=== PATIENT | male | born 1965 | race Hispanic/Latino ===

== ENCOUNTER 2017-08-03 21:03 | Observation (INO) | payer OTHER ==
--- OUTSIDE RECORDS SUMMARY | 2017-08-03 21:04 | XMS REPORT ---
:1965 Author Organization eClinicalWorks Care Team Providers Name Role Phone Leora Vizcarra Provider Role Unavailable Allergies, Adverse Reactions, Alerts Substance Reaction Event Type N.K.D.A. Info Not Available Non Drug Allergy Problems Problem Type Condition Code Onset Dates Condition Status Problem Hypertension I10 Active Assessment Hypertension I10 Active Problem Pure hypercholesterolemia E78.00 Active Assessment Pure hypercholesterolemia E78.00 Active Assessment Encounter for screening for Z12.5 Active malignant neoplasm of prostate Medications Medication Code Code Instructions Start End Status Dosage System Date Date Cefdinir [facility] 58584347400 300 MG Oral Active TK 2 CS PO QD Virtussin A/C [facility] 53631930920 100-10 MG/5ML Active (Schedule V Oral Drug) TK 1 TO 2 TEASPOONS PO QHS PRN Aspirin Adult [facility] 16082296153 81 MG Orally Active 1 tablet Low Dose Once a day Lisinopril [facility] 98887508857 10 MG Oral Once Active 1 tablet a day Azithromycin ND 56976231121 250 MG Oral Active not defined Oseltamivir [facility] 78555167197 75 MG Oral Active TK ONE C PO Phosphate BID TAT Simvastatin [facility] 53752582892 20 MG Oral Once Active 1 tablet in a day the evening Fish Oil ND 31930354986 500 MG Orally Active 1 capsule Twice a day Results No Known Results Summary Purpose eClinicalWorks Submission
[2017-08-03 22:05] LABS: Absolute Lymphocytes (CBC) 1.5 K/uL (0.7-4.9); Absolute Monocytes 0.9 K/uL (0.1-1.3); Absolute Neutrophil 11.3 K/uL (1.8-8.0); Basophils % 0.2 % (0-1.3); Eosinophils % 0.3 % (0-4.4); Hematocrit 43.5 % (39.6-49.0); Lymphocytes % 10.8 % (15.3-44.8); MCH 28.6 pg (27.0-35.0); MCV 86.1 fL (80-100); MPV 7.8 fL (7.6-11.3); Monocytes % 6.4 % (3.3-12.3); RBC Red Blood Cell Count 5.06 M/uL (4.33-5.43)
[2017-08-03 22:16] LABS: Protime INR 1.16
[2017-08-03 22:17] LABS: Potassium 3.3 mEq/L (3.6-5.0)
[2017-08-03 22:25] LABS: Albumin 4.1 g/dL (3.2-5.5); Bilirubin Direct 0.1 mg/dL (0-0.2); Bilirubin Total 0.8 mg/dL (0.3-1.2); C-Reactive Protein 103.2 mg/L (<10.0); Protein, Total 7.3 g/dL (6.0-8.3)
[2017-08-03 22:27] LABS: CKMB Creatine Kinase MB 0.7 ng/ml (0.3-4.0)
[2017-08-03] MEDS ORDERED: VANCOMYCIN/NS 1 gm 1 GM/250 ML BAG ONE (22:32)
[2017-08-03] MEDS ORDERED: TETANUS & DIPHTHERIA TOX,ADULT 0.5 ML VIAL ONE (22:33)
[2017-08-03] MEDS ORDERED: NA CHLORIDE 0.9% 1,000 ML ONE (22:33)
[2017-08-03] MEDS ORDERED: NA CHLORIDE 0.9% 2,000 ML ONE (22:44)
--- NOTE | 2017-08-03 23:27 | ER ---
Nurse's Notes [facility] Name: Mian Barreto Age: 51 yrs Sex: Male : 1965 Arrival Date: 08/03/2017 Time: 21:12 Bed 25 Private MD: Diagnosis: Cellulitis of right upper limb Presentation: 08/03 21:14 Presenting complaint: Patient states: "On Tuesday I noticed a small nut in my right arm. ao This morning I notice it was it getting bigger and it hurts." Patient report chills and fever at home. Patient denies nausea and vomiting. Transition of care: patient was not received from another setting of care. Onset of symptoms was July 29, 2017. Care prior to arrival: None. 21:14 Method Of Arrival: Ambulatory ao 21:14 Acuity: BLAS 4 ao 21:14 Acuity: BLAS 3 ao Triage Assessment: 21:20 Bite description: Patient denies an inset bite, but report a small nail perforation. ao General: Appears in no apparent distress. comfortable, Behavior is calm, cooperative, appropriate for age. Pain: Complains of pain in right arm. 22:51 Bite description: bite sustained to right tricep and right arm by unk, animal rk2 information: vaccination(s) is not up to date. Historical: - Allergies: 21:20 No Known Allergies; ao - Home Meds: 21:20 simvastatin 40 mg oral tab [Active]; lisinopril 5 mg Oral tab 1 tab once daily [Active];ao - PMHx: 21:20 Hyperlipidemia; Hypertension; ao - PSHx: 21:20 Tonsillectomy; ao - Immunization history:: Adult Immunizations. - Social history:: Smoking status: Patient uses tobacco products, chewing tobacco, Patient uses alcohol, occasionally. Patient/guardian denies using street drugs. Screenin:55 Abuse screen: Denies threats or abuse. rk2 21:55 Nutritional screening: No deficits noted. Tuberculosis screening: No symptoms or risk rk2 factors identified. Fall Risk None identified. Assessment: 21:55 General: Appears in no apparent distress. well groomed, well developed, emaciated, well rk2 nourished, Behavior is calm, cooperative. Pain: Complains of pain in right tricep and right arm. Cardiovascular: Rhythm is sinus tachycardia. Respiratory: Airway is patent Respiratory effort is even, unlabored, Respiratory pattern is regular, symmetrical. Derm: Skin is intact, Skin is pink, warm \\T\\ dry. Right deltoid red, warm to the touch. 23:12 Reassessment: Pt. resting in room \\T\\ this time... iv infusing. Pt. appears to be in no [facility] obvious distress, no needs voiced. 08/04 00:25 Reassessment: Pt. ambulated to restroom without difficulty. Returned to room back into [facility] bed... no other needs \\T\\ this time. 00:57 Reassessment: Called report to receiving RN... Pt. transported to room 424 by [facility] wheelchair, by tech. Vital Signs: 08/03 21:21 BP 104 / 76; Pulse 134; Resp 14; Temp 99.5; Pulse Ox 98% on R/A; Weight 96.16 kg (R); ao Height 5 ft. 6 in. (167.64 cm) (R); Pain 5/10; 22:26 BP 108 / 73; Pulse 105; Resp 23; Pulse Ox 98% on R/A; dh3 23:06 BP 106 / 77; Pulse 96; Resp 19; Pulse Ox 100% on R/A; 3 08/04 00:00 BP 124 / 77; Pulse 103; Resp 16; Pulse Ox 100% on R/A; rk2 08/03 21:21 Body Mass Index 34.22 (96.16 kg, 167.64 cm) ao ED Course: 08/03 21:12 Patient arrived in ED. es 21:13 Светлана Wright FNP-C is PHCP. snw 21:13 Brennan Norman MD is Attending Physician. snw 21:18 Triage completed. ao 21:23 Arm band placed on right wrist. Patient placed in an exam room, on a stretcher, on ao pulse oximetry, Patient notified of wait time. 21:25 Lisa Lo, LETA is Primary Nurse. [facility] 21:52 Initial lab(s) drawn, by id, sent to lab. First set of blood cultures drawn by id. [facility] Inserted saline lock: 20 gauge in left antecubital area, using aseptic technique. Blood collected. 21:55 Patient has correct armband on for positive identification. Bed in low position. Call rk2 light in reach. 22:11 Second set of blood cultures drawn by venipuncture 23G to right ac by id. 3 22:18 X-ray completed. Portable x-ray completed in exam room. Patient tolerated procedure kc2 well. 22:19 Humerus Right XRAY In Process Unspecified. EDMS 22:24 Basic Metabolic Panel Sent. 2 23:26 Francisco Hope MD is Hospitalizing Provider. [facility] 08/04 00:59 No provider procedures requiring assistance completed. Patient admitted, IV remains in rk2 place. 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 Exp: ao 12/09/2019. Lot #: [id number]. } Route: IM; Site: left deltoid; 23:54 Follow up: Response: No adverse reaction [facility] 22:22 Drug: vancoMYCIN 1 grams Route: IVPB; Infused Over: 2 hrs; Site: left antecubital; ao 23:54 Follow up: IV Status: Completed infusion [facility] 08/04 00:22 Follow up: Response: No adverse reaction; IV Status: Completed infusion [facility] 08/03 22:23 Drug: NS 0.9% (30 ml/kg) 30 ml/kg Route: IV; Rate: bolus; Site: left antecubital; ao 08/04 01:02 Follow up: IV Status: Infusion continued upon admission [facility] 08/03 23:53 Drug: Doxycycline 100 mg Route: PO; [facility] 08/04 00:28 Follow up: Response: No adverse reaction 2 Point of Care Testing: Blood Glucose: 08/03 22:26 Blood Glucose: 114 mg/dL; dh3 Ranges: Outcome: 23:27 Decision to Hospitalize by Provider. [facility] 08/04 00:59 Admitted to Med/surg accompanied by tech, room 424. rk2 Condition: good Instructed on the need for admit. 01:01 Patient left the ED. rk2 Signatures: Dispatcher [employer] EDMS Светлана Wright FNP-C VOLLEYBALL PLAYER-Jennifer Miner Alex, RN RN Ruth West 2 Prema Servin 3 Lisa Lo RN RN rk2 Corrections: (The following items were deleted from the chart) 03/28 22:50 21:15 General: Appears in no apparent distress. well groomed, well developed, rk2 emaciated, well nourished, Behavior is calm, cooperative, [facility] :50 21:15 Pain: Complains of pain in right tricep and right arm [facility] :50 21:15 Cardiovascular: Rhythm is sinus tachycardia [place] [id number] :50 21:15 Respiratory: Airway is patent Respiratory effort is even, unlabored, Respiratory [facility] pattern is regular, symmetrical, [facility] :50 21:15 Derm: Skin is intact, Skin is pink, warm \\T\\ dry. Right deltoid red, warm to the [facility] touch. [facility] 08/04 00:59 00:57 Reassessment: Called report to receiving RN... Pt. transported to room 425 by [facility] wheelchair, by tech. [facility]
--- NOTE | 2017-08-03 23:27 | EDPHYS ---
Physician Documentation [facility] Name: Mian Barreto Age: 51 yrs Sex: Male : 1965 Arrival Date: 08/03/2017 Time: 21:12 Bed 25 Private MD: ED Physician Brennan Norman HPI: 08/03 21:45 This 51 yrs old Male presents to ER via Ambulatory with complaints of Fever, snw Insect Bite. 21:45 The patient reports fever, that was measured at 100 degrees Fahrenheit. Onset: The snw symptoms/episode began/occurred suddenly, today. Modifying factors: recent puncture wound to right tricep area on Tuesday (three days ago). Associated signs and symptoms: Pertinent positives: skin rash, swelling, fever, tenderness, and warmth to area. Severity of symptoms: At their worst the symptoms were moderate severe. The patient has not experienced similar symptoms in the past. The patient has been recently seen by a physician: the patient's primary care provider, Dr. Rafa Vizcarra, [employer] with different complaint(s), check up recently. Historical: - Allergies: 21:20 No Known Allergies; ao - Home Meds: 21:20 simvastatin 40 mg oral tab [Active]; lisinopril 5 mg Oral tab 1 tab once daily [Active];ao - PMHx: 21:20 Hyperlipidemia; Hypertension; ao - PSHx: 21:20 Tonsillectomy; ao - Immunization history:: Adult Immunizations. - Social history:: Smoking status: Patient uses tobacco products, chewing tobacco, Patient uses alcohol, occasionally. Patient/guardian denies using street drugs. ROS: 21:43 Eyes: Negative for injury, pain, redness, and discharge, ENT: Negative for injury, snw pain, and discharge, Neck: Negative for injury, pain, and swelling, Cardiovascular: Negative for chest pain, palpitations, and edema, Respiratory: Negative for shortness of breath, cough, wheezing, and pleuritic chest pain, Abdomen/GI: Negative for abdominal pain, nausea, vomiting, diarrhea, and constipation, Back: Negative for injury and pain, : Negative for injury, bleeding, discharge, and swelling, MS/Extremity: Negative for injury and deformity, Neuro: Negative for headache, weakness, numbness, tingling, and seizure. 21:43 Constitutional: Positive for fever. 21:43 Skin: Positive for cellulitis, swelling, of the right tricep. Exam: 21:44 Head/Face: Normocephalic, atraumatic. Eyes: Pupils equal round and reactive to light, snw extra-ocular motions intact. Lids and lashes normal. Conjunctiva and sclera are non-icteric and not injected. Cornea within normal limits. Periorbital areas with no swelling, redness, or edema. ENT: Nares patent. No nasal discharge, no septal abnormalities noted. Tympanic membranes are normal and external auditory canals are clear. Oropharynx with no redness, swelling, or masses, exudates, or evidence of obstruction, uvula midline. Mucous membranes moist. Neck: Trachea midline, no thyromegaly or masses palpated, and no cervical lymphadenopathy. Supple, full range of motion without nuchal rigidity, or vertebral point tenderness. No Meningismus. Chest/axilla: Normal chest wall appearance and motion. Nontender with no deformity. No lesions are appreciated. 21:44 Respiratory: Lungs have equal breath sounds bilaterally, clear to auscultation and percussion. No rales, rhonchi or wheezes noted. No increased work of breathing, no retractions or nasal flaring. Abdomen/GI: Soft, non-tender, with normal bowel sounds. No distension or tympany. No guarding or rebound. No evidence of tenderness throughout. Back: No spinal tenderness. No costovertebral tenderness. Full range of motion. MS/ Extremity: Pulses equal, no cyanosis. Neurovascular intact. Full, normal range of motion. Neuro: Awake and alert, GCS 15, oriented to person, place, time, and situation. Cranial nerves II-XII grossly intact. Motor strength 5/5 in all extremities. Sensory grossly intact. Cerebellar exam normal. Normal gait. 21:44 Constitutional: The patient appears alert, awake, uncomfortable. 21:44 Cardiovascular: Rate: tachycardic, Rhythm: regular, Pulses: no pulse deficits are appreciated, Heart sounds: normal, Edema: is not appreciated. 21:44 Skin: Appearance: normal except for affected area, cellulitis, that is severe, well demarcated, on the right tricep, induration, that is moderate is noted, injury, puncture(s), that are deep, of the right tricep, leaned against some corkwood and onto a protruding nail/tac/or other sharp pin. Vital Signs: 21:21 BP 104 / 76; Pulse 134; Resp 14; Temp 99.5; Pulse Ox 98% on R/A; Weight 96.16 kg (R); ao Height 5 ft. 6 in. (167.64 cm) (R); Pain 5/10; 22:26 BP 108 / 73; Pulse 105; Resp 23; Pulse Ox 98% on R/A; dh3 23:06 BP 106 / 77; Pulse 96; Resp 19; Pulse Ox 100% on R/A; dh3 08/04 00:00 BP 124 / 77; Pulse 103; Resp 16; Pulse Ox 100% on R/A; rk2 08/03 21:21 Body Mass Index 34.22 (96.16 kg, 167.64 cm) ao MDM: 08/03 21:26 Patient medically screened. snw 23:25 Data reviewed: vital signs, nurses notes. Data interpreted: Pulse oximetry: on room air snw is 100 %. Interpretation: acceptable. Counseling: I had a detailed discussion with the patient and/or guardian regarding: the historical points, exam findings, and any diagnostic results supporting the discharge/admit diagnosis, lab results, radiology results, the need for further work-up and treatment in the hospital. Physician consultation: Francisco Hope MD was called at 23:26, regarding admission, to the medical/surgical unit. 08/03 21:42 Order name: Basic Metabolic Panel [facility] 08/03 21:42 Order name: Blood Culture Adult (2) [facility] 08/03 21:42 Order name: BNP; Complete Time: 23:01 w 08/03 21:42 Order name: C-Reactive Protein; Complete Time: 23:01 w 08/03 21:42 Order name: CBC with Diff; Complete Time: 23:01 w 08/03 21:42 Order name: Ckmb; Complete Time: 23:01 w 08/03 21:42 Order name: CPK; Complete Time: 23:01 w 08/03 21:42 Order name: Lactate; Complete Time: 23:01 w 08/03 21:42 Order name: LFT's; Complete Time: 23:01 w 08/03 21:42 Order name: Procalcitonin; Complete Time: 23:01 snw 08/03 21:42 Order name: Protime (+inr); Complete Time: 23: snw 08/03 21:42 Order name: Ptt, Activated; Complete Time: 23: snw 08/03 21:42 Order name: Sed Rate; Complete Time: 23: snw 08/03 21:42 Order name: Basic Metabolic Panel; Complete Time: 23:01 EDMS 08/03 21:42 Order name: Accucheck; Complete Time: 22:26 snw 08/03 21:42 Order name: Cardiac monitoring; Complete Time: 22:00 snw 08/03 21:42 Order name: IV Saline Lock - Large Bore; Complete Time: 21:59 snw 08/03 21:42 Order name: Labs collected and sent; Complete Time: 21: snw 08/03 21:42 Order name: O2 Per Protocol; Complete Time: 21:59 snw 08/03 21:42 Order name: O2 Sat Monitoring; Complete Time: 21:59 snw 08/03 21:42 Order name: Humerus Right XRAY snw Administered Medications: 22:21 Drug: Tetanus-Diphtheria Toxoid Adult 0.5 ml {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 Exp: ao 12/09/2019. Lot #: [id number]. } Route: IM; Site: left deltoid; 23:54 Follow up: Response: No adverse reaction 22:22 Drug: vancoMYCIN 1 grams Route: IVPB; Infused Over: 2 hrs; Site: left antecubital; ao 23:54 Follow up: IV Status: Completed infusion 08/04 00:22 Follow up: Response: No adverse reaction; IV Status: Completed infusion 08/03 22:23 Drug: NS 0.9% (30 ml/kg) 30 ml/kg Route: IV; Rate: bolus; Site: left antecubital; ao 08/04 01:02 Follow up: IV Status: Infusion continued upon admission 08/03 23:53 Drug: Doxycycline 100 mg Route: PO; 08/04 00:28 Follow up: Response: No adverse reaction rk2 Point of Care Testing: Blood Glucose: 08/03 22:26 Blood Glucose: 114 mg/dL; dh3 Ranges: Critical Glucose Levels:Adult <50 mg/dl or >400 mg/dl <40 mg/dl or >180 mg/dl Disposition: 08/04 02:53 Co-signature as Attending Physician, Brennan Norman MD. rn Disposition: 08/03/17 23:27 Hospitalization ordered by Francisco Hope for Inpatient Admission. Preliminary diagnosis is Cellulitis of right upper limb. - Bed requested for Telemetry/MedSurg (Inpatient). - Status is Inpatient Admission. rk2 - Condition is Stable. - Problem is new. - Symptoms have worsened. UTI on Admission? No Signatures: Dispatcher [employer] EDMS Samia Jones RN RN Светлана Wright, HOSPITAL MONITOR-C HOSPITAL MONITOR-Csnw Brennan Norman MD MD rn Ortiz, Alex RN Lisa Gutierrez RN RN rk2
[2017-08-03] MEDS ORDERED: DOXYCYCLINE 100 MG CAP PO ONE (23:58)
[2017-08-04] MEDS ORDERED: ONDANSETRON 4 MG/2 ML VIAL IV PRN (00:23)
[2017-08-04] MEDS ORDERED: ACETAMINOPHEN 500 MG TAB PO PRN (00:23)
[2017-08-04] MEDS ORDERED: MORPHINE 4 MG/ML SYR IV PRN (00:23)
[2017-08-04] MEDS ORDERED: Levofloxacin500mg IV 500 MG/100 ML BAG IV SCH (01:00)
[2017-08-04] MEDS ORDERED: NA CHLORIDE 0.9% 1,000 ML IV SCH (01:00)
[2017-08-04 01:08] VITALS: O2SAT 100
[2017-08-04 01:48] VITALS: BMI 34.8
[2017-08-04] MEDS: AMPICILLIN/SULBACT 3 GM in NA CHLORIDE 0.9% 100 ML IVPB SCH ×2 (06:00→12:20)
[2017-08-04] MEDS ORDERED: HYDROCORTISONE SUC 100 MG INJ IV ONE (07:53)
[2017-08-04 08:04] VITALS: BP 127/73; TEMP 100
--- NOTE | 2017-08-04 08:08 | RAD REPORT ---
EXAM DESCRIPTION: RAD - Humerus Right - 08/03/2017 10:22 pm CLINICAL HISTORY: Fever, arm pain COMPARISON: None. FINDINGS: Evidence of subcutaneous fat reticulation and swelling is suspected along the right arm so ft tissues. No subcutaneous gas is seen. No radiopaque foreign body appreciated. No underlying bone o r joint abnormality is detected.
--- NOTE | 2017-08-04 10:32 | RAD REPORT ---
EXAM DESCRIPTION: CT - Upper Extremity W/ Cont - 08/04/2017 9:39 am CLINICAL HISTORY: Pain and swelling involving the right arm superiorly. COMPARISON: Plain film 08/03/2017. FINDINGS: Skin thickening with subcutaneous fat reticulation is noted in the superior lateral the ri ght arm extending to the level of the shoulder. Mild fluid is seen along the fascia superficial to th e deltoid. Mild edema is suspected within the deltoid muscle. No collections seen. Osseous structures are intact without evidence of osteomyelitis. No radiopaque foreign body. IMPRESSION: Cellulitis findings are likely present in the right shoulder and proximal right arm. No subcutaneous abscess is observed. No finding to indicate osteomyelitis. Early myositis in the deltoid muscle is difficult to exclude as there is mild edema present within th e muscle belly and mild fluid along the superficial deltoid fascia.
--- NOTE | 2017-08-04 12:03 | P.HP ---
Certification for Inpatient Patient admitted to: Inpatient With expected LOS: >2 Midnights Patient will require the following post-hospital care: None Practitioner: I am a practitioner with admitting privileges, knowledge of patient current condition, hospital course, and medical plan of care. Services: Services provided to patient in accordance with Admission requirements found in Title 42 Section 412.3 of the Code of Federal Regulations Patient History Date of Service: 08/04/17 Reason for admission: Right upper extremity cellulitis History of Present Illness: patient is a 51-year-old gentleman who came into the hospital with cellulitis of the right upper extremity. Patient was at work and he accidentally bumped into a Cork board. The port had a nail protruding from it. 24 hr after this happened he started noticing erythema and pain. He also had a fever. He came into the emergency room for further evaluation. He noticed that the erythema was spreading from the anterior aspect of the right upper extremity and was extending posteriorly. Patient came into the emergency room for further evaluation. Patient has been started on antibiotics. X-ray does not reveal any air. At this time patient will be admitted to the hospital for treatment with IV antibiotics. Allergies No Known Allergies Allergy (Verified 08/04/17 00:41) Home Medications: Lisinopril [Lisinopril] 1 pill PO DAILY 08/04/17 Simvastatin [Simvastatin] 1 pill PO DAILY 08/04/17 - Past Medical/Surgical History Has patient received pneumonia vaccine in the past: No Diabetic: No -: Hypertension -: Hyperliperdimia -: Tonsillectomy -: Tricep muscle repair - Family History Father Medical History: Heart disease, Diabetes Mother Medical History: Diabetes - Social History Smoking Status: Never smoker Alcohol use: No CD- Drugs: No Caffeine use: Yes Place of Residence: Home Review of Systems 10-point ROS is otherwise unremarkable Physical Examination - Vital Signs Temperature: 100 F Blood Pressure: 127/73 Pulse: 104 Respirations: 18 Pulse Ox (%): 95 - Physical Exam General: Alert, In no apparent distress, Oriented x3 HEENT: Atraumatic, PERRLA, Mucous membr. moist/pink, EOMI, Sclerae nonicteric Neck: Supple, 2+ carotid pulse no bruit, No LAD, Without JVD or thyroid abnormality Respiratory: Clear to auscultation bilaterally, Normal air movement Cardiovascular: Regular rate/rhythm, Normal S1 S2 Gastrointestinal: Normal bowel sounds, Soft and benign, Non-distended, No tenderness Musculoskeletal: No clubbing, Swelling, Erythema, Tenderness Integumentary: Tenderness/swelling, Erythema, Warmth Neurological: Normal gait, Normal speech, Normal strength at 5/5 x4 extr, Normal tone, Sensation intact, Cranial nerves 3-12 intact, Normal affect Lymphatics: No axilla or inguinal lymphadenopathy - Studies Laboratory Data (last 24 hrs) 08/03/17 21:51: PT 13.7 H, INR 1.16, APTT 25.6 08/03/17 21:51: WBC 13.8 H, Hgb 14.5, Hct 43.5, Plt Count 263 08/03/17 21:51: B-Natriuretic Peptide 16 08/03/17 21:51: Sodium 136, Potassium 3.3 L, BUN 13, Creatinine 1.11, Glucose 149 H, Total Bilirubin 0.8, AST 22, ALT 16, Alkaline Phosphatase 69 Assessment & Plan - Problems (Diagnosis) (1) Hypertension Current Visit: Yes Status: Acute (2) Fever Current Visit: Yes Status: Acute (3) Cellulitis of right upper extremity Onset Date: 08/04/17 Current Visit: Yes Status: Acute - Plan 1. Continue with IV antibiotic 2. monitor wound closely 3. Gentle IV hydration 4. Monitor CBC 5. Strict blood sugar monitoring 6. Pain control 7. keep right upper extremity elevated Discharge Plan: Home Plan to discharge in: 48 Hours - Advance Directives Does patient have a Living Will: Yes Does patient have a Durable POA for Healthcare: Yes - Code Status/Comfort Care Code Status Assessed: Yes Code Status: Full Code Critical Care: No Time Spent Managing PTS Care (In Minutes): 50
--- NOTE | 2017-08-04 16:29 | EKG ---
Test Date: 2017-08-03 Test Time: 21:53:51 Food General Manager: SEVERINO MEASUREMENT RESULTS: Intervals: Rate: 114 AK: 134 QRSD: 92 QT: 308 QTc: 424 [place]: P: 15 AK: 134 QRS: 48 T: -7 INTERPRETIVE STATEMENTS: Sinus tachycardia Otherwise normal ECG No previous ECG available for comparison Electronically Signed On 08-04-17 16:27:47 CDT by Jose Infante
--- NOTE | 2017-08-04 17:41 | P.DS ---
Admission Date: 08/03/17 Discharge Date: 08/04/17 Disposition: ROUTINE DISCHARGE Discharge Condition: GOOD Reason for Admission: Right upper extremity cellulitis - Problems (1) Cellulitis of right upper extremity Onset Date: 08/04/17 Status: Acute (2) Hypertension Status: Acute Brief History of Present Illness: patient is a 51-year-old gentleman who came into the hospital with cellulitis of the right upper extremity. Patient was at work and he accidentally bumped into a Cork board. The port had a nail protruding from it. 24 hr after this happened he started noticing erythema and pain. He also had a fever. He came into the emergency room for further evaluation. He noticed that the erythema was spreading from the anterior aspect of the right upper extremity and was extending posteriorly. Patient came into the emergency room for further evaluation. Patient has been started on antibiotics. X-ray does not reveal any air. At this time patient will be admitted to the hospital for treatment with IV antibiotics. Hospital Course: The patient admitted hospital for cellulitis. Imaging study demonstrated no evidence of abscess formation or osteomyelitis. The patient was giving intravenous vancomycin and unison with clinical improvement. The patient is discharged home in stable condition on oral antibiotics Bactrim and doxycycline for 2 weeks. Vital Signs/Physical Exam: Temp Pulse Resp BP Pulse Ox 100 F 104 H 18 127/73 95 08/04/17 12:03 08/04/17 12:03 08/04/17 12:03 08/04/17 12:03 08/04/17 12:03 General: Alert, In no apparent distress HEENT: Atraumatic, PERRLA, EOMI Neck: Supple, JVD not distended Respiratory: Clear to auscultation bilaterally, Normal air movement Cardiovascular: Regular rate/rhythm, Normal S1 S2 Gastrointestinal: Normal bowel sounds, No tenderness Musculoskeletal: Erythema (There is a small area of erythema to the right) Integumentary: No rashes Neurological: Normal speech, Normal tone, Normal affect Lymphatics: No axilla or inguinal lymphadenopathy Laboratory Data at Discharge: WBC 13.8 K/uL (4.3-10.9) H 08/03/17 21:51 Hgb 14.5 g/dL (13.6-17.9) 08/03/17 21:51 Hct 43.5 % (39.6-49.0) 08/03/17 21:51 Plt Count 263 K/uL (152-406) 08/03/17 21:51 PT 13.7 SECONDS (9.5-12.5) H 08/03/17 21:51 INR 1.16 08/03/17 21:51 APTT 25.6 SECONDS (24.3-36.9) 08/03/17 21:51 Sodium 136 mEq/L (135-145) 08/03/17 21:51 Potassium 3.3 mEq/L (3.6-5.0) L 08/03/17 21:51 BUN 13 mg/dL (6-20) 08/03/17 21:51 Creatinine 1.11 mg/dL (0.61-1.24) 08/03/17 21:51 Glucose 149 mg/dL (65-120) H 08/03/17 21:51 Total Bilirubin 0.8 mg/dL (0.3-1.2) 08/03/17 21:51 AST 22 IU/L (10-42) 08/03/17 21:51 ALT 16 IU/L (10-60) 08/03/17 21:51 Alkaline Phosphatase 69 IU/L (42-121) 08/03/17 21:51 B-Natriuretic Peptide 16 pg/ml (<=100) 08/03/17 21:51 Home Medications: Doxycycline Monohydrate 100 mg PO BID #28 capsule 08/04/17 Lisinopril 1 pill PO DAILY 08/04/17 Simvastatin 1 pill PO DAILY 08/04/17 Smz./Tmp. [Bactrim Ds 800 MG/160 MG*] 1 tab PO BID #28 tab 08/04/17 New Medications: Doxycycline Monohydrate 100 mg PO BID #28 capsule Smz./Tmp. [Bactrim Ds 800 MG/160 MG*] 1 tab PO BID #28 tab Diet: Regular Activity: Ad henri Time spent managing pt's care (in minutes): 15
== END 2017-08-04 14:00 | disposition home or self-care (01) ==
LOC: ER 21:03 → INTOOBSV 23:29 → ERHOLD 23:29 → 4TH 08-04 00:37
PROVIDERS: ADMIT Hospitalist; ATTEND Hospitalist
DX: L03.113 Cellulitis of right upper limb (principal); I10 Essential (primary) hypertension; E78.5 Hyperlipidemia, unspecified; Z23 Encounter for immunization
CPT/HCPCS: 36415; 73201; 80048; 80076; 82550; 82553; 82962; 83605; 83880; 84145; 85025; 85610; 85652; 85730; 86140; 87040; 90714; 93005; 96365; 96366; 99285; G0378; J0295; J1720; J3370; J7030; Q9967

== ENCOUNTER 2017-08-06 18:20 | Inpatient (IN) | payer OTHER ==
--- OUTSIDE RECORDS SUMMARY | 2017-08-06 18:22 | XMS REPORT ---
[...] End Status Dosage System Date Date Cefdinir [facility] 83904570973 300 MG Oral Active TK 2 CS PO QD Virtussin A/C [facility] 01650702034 100-10 MG/5ML Active (Schedule V Oral Drug) TK 1 TO 2 TEASPOONS PO QHS PRN Aspirin Adult [facility] 68504025036 81 MG Orally Active 1 tablet Low Dose Once a day Lisinopril [facility] 55686827621 10 MG Oral Once Active 1 tablet a day Azithromycin ND 95843052775 250 MG Oral Active not defined Oseltamivir [facility] 98154568332 75 MG Oral Active TK ONE C PO Phosphate BID TAT Simvastatin [facility] 70388253981 20 MG Oral Once Active 1 tablet in a day the evening Fish Oil ND 76525418823 500 MG Orally Active 1 capsule Twice a day Results No Known Results Summary Purpose eClinicalWorks Submission
[2017-08-06] MEDS ORDERED: NA CHLORIDE 0.9% 1,000 ML ONE (19:15)
[2017-08-06 19:29] LABS: Absolute Lymphocytes (CBC) 0.8 K/uL (0.7-4.9); Absolute Monocytes 0.5 K/uL (0.1-1.3); Absolute Neutrophil 7.6 K/uL (1.8-8.0); Basophils % 0.3 % (0-1.3); Eosinophils % 1.8 % (0-4.4); Hematocrit 38.3 % (39.6-49.0); Lymphocytes % 9.2 % (15.3-44.8); MCH 29.2 pg (27.0-35.0); MCV 85.4 fL (80-100); MPV 7.3 fL (7.6-11.3); Monocytes % 5.3 % (3.3-12.3); RBC Red Blood Cell Count 4.48 M/uL (4.33-5.43)
[2017-08-06 19:32] LABS: Protime INR 1.12
[2017-08-06 19:38] LABS: Potassium 3.5 mEq/L (3.6-5.0)
[2017-08-06 19:46] LABS: Albumin 3.5 g/dL (3.2-5.5); Bilirubin Direct 0.1 mg/dL (0-0.2); Bilirubin Total 0.4 mg/dL (0.3-1.2); C-Reactive Protein 105.8 mg/L (<10.0); Protein, Total 6.8 g/dL (6.0-8.3)
--- NOTE | 2017-08-06 20:58 | RAD REPORT ---
EXAM DESCRIPTION: VAS - Extremity Venous Uni Ltd - 08/06/2017 8:52 pm CLINICAL HISTORY: Arm swelling. COMPARISON: None. FINDINGS: Right upper extremity venous system was interrogated with Doppler technique. Normal flow, compressibility and augmentation was noted. There is no DVT present. IMPRESSION: No evidence of right upper extremity deep venous thrombosis.
--- NOTE | 2017-08-06 21:44 | RAD REPORT ---
EXAM DESCRIPTION: CT - Upper Extremity W/ Cont - 08/06/2017 9:31 pm CLINICAL HISTORY: Right arm swelling and redness, progressive. COMPARISON: 08/04/2017 FINDINGS: Skin thickening with subcutaneous fat stranding is seen involving the right upper extremit y. The inflammatory changes appear to extend from the level of the mid forearm along the posterior el bow and along the posterior and lateral aspect of the right arm. The degree of subcutaneous inflammat ion has progressed moderately. A focal rounded rim enhancing fluid collection has developed in the po sterior soft tissues of the distal arm, just proximal to the right elbow within the subcutaneous fat measuring 18 x 12 mm (image 172/[id number]) likely representing an abscess. Additional smaller similar colle ctions may be developing adjacent to this along with a probable developing sinus tract extending to t he skin. No air is seen in the subcutaneous tissues or the fascial planes. No evidence of osteomyelit is. IMPRESSION: Progression of the inflammatory changes involving the skin in subcutaneous fat of the ri ght upper extremity. There is development of a subcutaneous abscess the posterior soft tissues of the distal right arm, just proximal to the elbow, measuring 18 x 12 mm.
--- NOTE | 2017-08-06 22:15 | ER ---
Nurse's Notes [facility] Name: Mian Barreto Age: 51 yrs Sex: Male : 1965 Arrival Date: 08/06/2017 Time: 18:23 Bed 14 Private MD: Diagnosis: Right upper extremity cellulitis and abscess Presentation: 08/06 18:25 Presenting complaint: Patient states: I have been having some redness and swelling in la1 my right arm a couple days ago but now it is getting worse and the swelling is extending down my arm. Transition of care: patient was not received from another setting of care. Onset of symptoms was August 06, 2017. Care prior to arrival: None. 18:25 Method Of Arrival: Ambulatory la1 18:25 Acuity: BLAS 3 la1 Historical: - Allergies: 18:25 No Known Allergies; la1 - PMHx: 18:25 Hyperlipidemia; Hypertension; la1 - Immunization history:: Adult Immunizations up to date. - Social history:: Smoking status: Patient/guardian denies using tobacco. Screenin:28 Abuse screen: Denies threats or abuse. Nutritional screening: No deficits noted. jd3 Tuberculosis screening: No symptoms or risk factors identified. Fall Risk IV access (20 points). Total Lemos Fall Scale indicates No Risk (0-24 pts). Assessment: 19:25 General: Appears in no apparent distress. uncomfortable, Behavior is calm, cooperative, jd3 appropriate for age. Pain: Complains of pain in right arm. Neuro: Level of Consciousness is awake, alert, obeys commands, Oriented to person, place, time, situation. Cardiovascular: Capillary refill < 3 seconds Patient's skin is warm and dry. Respiratory: Airway is patent Respiratory effort is even, unlabored, Respiratory pattern is regular, symmetrical. GI: Abdomen is round Abd is soft and non tender X 4 quads. : No signs and/or symptoms were reported regarding the genitourinary system. EENT: No signs and/or symptoms were reported regarding the EENT system. Derm: Skin is intact, Skin is dry, Skin is normal, Skin temperature is warm redness and swelling to right arm. Musculoskeletal: Circulation, motion, and sensation intact. Range of motion: intact in all extremities. 20:57 Reassessment: Patient appears in no apparent distress at this time. Patient and/or jd3 family updated on plan of care and expected duration. Pain level reassessed. Patient is alert, oriented x 3, equal unlabored respirations, skin warm/dry/pink. 21:50 Reassessment: Patient appears in no apparent distress at this time. Patient and/or jd3 family updated on plan of care and expected duration. Pain level reassessed. Patient is alert, oriented x 3, equal unlabored respirations, skin warm/dry/pink. 22:50 Reassessment: Patient appears in no apparent distress at this time. Patient and/or jd3 family updated on plan of care and expected duration. Pain level reassessed. Patient is alert, oriented x 3, equal unlabored respirations, skin warm/dry/pink. 23:42 Reassessment: Patient appears in no apparent distress at this time. Patient and/or jd3 family updated on plan of care and expected duration. Pain level reassessed. Patient is alert, oriented x 3, equal unlabored respirations, skin warm/dry/pink. Vital Signs: 18:26 BP 135 / 82; Pulse 119; Resp 16; Temp 97.7; Pulse Ox 100% on R/A; Weight 97.52 kg; la1 Height 5 ft. 6 in. (167.64 cm); 19:29 BP 131 / 85; Pulse 109; Resp 17 S; Pulse Ox 99% on R/A; jd3 20:56 BP 126 / 82; Pulse 96; Resp 17 S; Pulse Ox 100% on R/A; jd3 23:40 BP 128 / 83; Pulse 100; Resp 17 S; Pulse Ox 99% on R/A; jd3 18:26 Body Mass Index 34.70 (97.52 kg, 167.64 cm) la1 ED Course: 18:23 Patient arrived in ED. mr 18:26 Triage completed. la1 18:26 Arm band placed on left wrist. la1 18:28 Sebastian Hendrix LVN is Primary Nurse. em 18:29 Derian Pineda NP is PHCP. pm1 18:29 Jim Anne MD is Attending Physician. pm1 19:02 Primary Nurse role handed off by Sebastian Hendrix LVN rg2 19:13 Report given to LETA Salas. em 19:15 Inserted saline lock: 20 gauge in left antecubital area, using aseptic technique. Blood jd3 collected. 19:19 Josue Skinner, RN is Primary Nurse. jd3 19:28 Patient has correct armband on for positive identification. Bed in low position. Call jd3 light in reach. Side rails up X 1. Adult w/ patient. 20:52 US Extremity Venous Uni Ltd In Process Unspecified. EDMS 21:31 Upper Extremity W/ Cont In Process Unspecified. EDMS 21:31 CT completed. Patient tolerated procedure well. Patient moved back from CT. bq 22:11 Francisco Hope MD is Hospitalizing Provider. pm1 23:41 No provider procedures requiring assistance completed. Patient admitted, IV remains in jd3 place. Administered Medications: 19:24 Drug: NS 0.9% 1000 ml Route: IV; Rate: 1000 ml; Site: left antecubital; jd3 20:24 Follow up: Response: No adverse reaction; IV Status: Completed infusion; IV Intake: jd3 1000ml 23:00 Drug: Clindamycin 900 mg Route: IVPB; Infused Over: 30 mins; Site: left antecubital; jd3 23:40 Follow up: Response: No adverse reaction; IV Status: Completed infusion jd3 23:40 Drug: vancoMYCIN 1 grams Route: IVPB; Infused Over: 2 hrs; Site: left antecubital; jd3 23:58 Follow up: Response: No adverse reaction; IV Status: Infusion continued upon admission jd3 Intake: 20:24 IV: 1000ml; Total: 1000ml. jd3 Outcome: 22:15 Decision to Hospitalize by Provider. pm1 23:55 Admitted to Med/surg accompanied by tech, via wheelchair, room 406, with chart, Report jd3 called to Andrew GILLETTE 23:55 Condition: stable 23:55 Instructed on the need for admit, Demonstrated understanding of instructions. 04 00:04 Patient left the ED. jd3 Signatures: Dispatcher [employer] EDMS Leilani Babcock2 Marybel Dickinson mr DustymirandaJoi Edgar, PURCHASING ANALYST PURCHASING ANALYST Daren Borja, RN RN la1 Derian Pineda, FIRE BEHAVIOR ANALYST FIRE BEHAVIOR ANALYST pm1 Josue Skinner, LETA GILLETTE jrocio
--- NOTE | 2017-08-06 22:15 | EDPHYS ---
Physician Documentation [facility] Name: Mian Barreto Age: 51 yrs Sex: Male : 1965 Arrival Date: 08/06/2017 Time: 18:23 Bed 14 Private MD: ED Physician Jim Anne HPI: 08/06 20:00 This 51 yrs old Male presents to ER via Ambulatory with complaints of Right pm1 Arm Swelling. 20:00 The patient or guardian complains of pain, swelling. The complaints affect the right pm1 bicep, right tricep and palmar aspect of right forearm. Context: The problem was sustained at work, resulted from Puncture wound 4 days ago. Onset: The symptoms/episode began/occurred 4 day(s) ago. Treatment prior to arrival includes: prescription medications, Patient currently taking doxycycline and Bactrim DS. Modifying factors: The symptoms are alleviated by nothing. the symptoms are aggravated by movement. Associated signs and symptoms: Pertinent positives: fever, pain, swelling, Pertinent negatives: numbness, tingling. Severity of symptoms: in the emergency department the symptoms are actually worse. The patient has been recently been admitted at [facility], for similar complaints, but despite evaluation and treatment the patient now has worsening symptoms, Patient admitted on 08/03/2017 for cellulitis of right upper arm. Discharged to home on 08/04/2017 after improvement in cellulitis. Discharged with antibiotics - doxyxcyline and bactrim. Patient presenting today with complaints of increased swelling and pain to right forearm now. Patient reports pain with bending right elbow and that was not present previously. Historical: - Allergies: 18:25 No Known Allergies; la1 - PMHx: 18:25 Hyperlipidemia; Hypertension; la1 - Immunization history:: Adult Immunizations up to date. - Social history:: Smoking status: Patient/guardian denies using tobacco. ROS: 20:00 Constitutional: Negative for fever, chills, and weight loss. pm1 20:00 Eyes: Negative for injury, pain, redness, and discharge, ENT: Negative for injury, pain, and discharge, Neck: Negative for injury, pain, and swelling, Cardiovascular: Negative for chest pain, palpitations, and edema, Respiratory: Negative for shortness of breath, cough, wheezing, and pleuritic chest pain, Abdomen/GI: Negative for abdominal pain, nausea, vomiting, diarrhea, and constipation, Back: Negative for injury and pain. 20:00 Neuro: Negative for headache, weakness, numbness, tingling, and seizure. 20:00 Constitutional: Positive for fever. 20:00 MS/extremity: Positive for decreased range of motion, pain, swelling, of the right arm. 20:00 Skin: Positive for swelling, of the right arm. Exam: 20:00 Constitutional: This is a well developed, well nourished patient who is awake, alert, pm1 and in no acute distress. Head/Face: Normocephalic, atraumatic. Neck: Trachea midline, no thyromegaly or masses palpated, and no cervical lymphadenopathy. Supple, full range of motion without nuchal rigidity, or vertebral point tenderness. No Meningismus. Chest/axilla: Normal chest wall appearance and motion. Nontender with no deformity. No lesions are appreciated. Cardiovascular: Regular rate and rhythm with a normal S1 and S2. No gallops, murmurs, or rubs. No pulse deficits. Respiratory: Lungs have equal breath sounds bilaterally, clear to auscultation and percussion. No rales, rhonchi or wheezes noted. No increased work of breathing, no retractions or nasal flaring. Abdomen/GI: Soft, non-tender, with normal bowel sounds. No distension or tympany. No guarding or rebound. No evidence of tenderness throughout. Back: No spinal tenderness. No costovertebral tenderness. Full range of motion. 20:00 Musculoskeletal/extremity: Extremities: grossly normal except: noted in the palmar aspect of right forearm and right tricep and right bicep: pain, swelling, ROM: limited passive range of motion due to pain, in the anterior aspect of right shoulder, posterior aspect of right shoulder and right elbow. 20:00 Skin: Appearance: normal except for affected area, swelling, noted on the palmar aspect of right forearm and right tricep and right bicep. Vital Signs: 18:26 BP 135 / 82; Pulse 119; Resp 16; Temp 97.7; Pulse Ox 100% on R/A; Weight 97.52 kg; la1 Height 5 ft. 6 in. (167.64 cm); 19:29 BP 131 / 85; Pulse 109; Resp 17 S; Pulse Ox 99% on R/A; jd3 20:56 BP 126 / 82; Pulse 96; Resp 17 S; Pulse Ox 100% on R/A; jd3 23:40 BP 128 / 83; Pulse 100; Resp 17 S; Pulse Ox 99% on R/A; jd3 18:26 Body Mass Index 34.70 (97.52 kg, 167.64 cm) la1 MDM: 18:29 Patient medically screened. pm1 21:48 Data reviewed: vital signs. Data interpreted: Pulse oximetry: on room air is 100 %. pm1 Interpretation: normal. 22:10 Counseling: I had a detailed discussion with the patient and/or guardian regarding: the pm1 historical points, exam findings, and any diagnostic results supporting the discharge/admit diagnosis, lab results, radiology results, the need for further work-up and treatment in the hospital, to return to the emergency department if symptoms worsen or persist or if there are any questions or concerns that arise at home. 22:20 Physician consultation: Francisco Hope MD was called at 22:20, regarding admission, pm1 patient's condition, would like consultation with Dr. Holcomb, would like medications started, Clindamycin and Vancomycin. 22:54 Physician consultation: Vincent Holcomb MD was contacted at 22:54, and will see patient in pm1 OR, tomorrow, in the emergency department to see patient at 22:54, NPO after midnight. 08/06 18:51 Order name: Basic Metabolic Panel; Complete Time: 19:58 pm1 08/06 18:51 Order name: Blood Culture Adult (2) pm1 08/06 18:51 Order name: C-Reactive Protein; Complete Time: 19:58 pm1 08/06 18:51 Order name: CBC with Diff; Complete Time: 19:58 pm1 08/06 18:51 Order name: CPK; Complete Time: 19:58 pm1 08/06 18:51 Order name: Lactate; Complete Time: 19:58 pm1 08/06 18:51 Order name: LFT's; Complete Time: 19:58 pm1 08/06 18:51 Order name: Lipase; Complete Time: 19:58 pm1 08/06 18:51 Order name: Procalcitonin; Complete Time: 19:58 pm1 08/06 18:51 Order name: Protime (+inr); Complete Time: 19:35 pm1 08/06 18:51 Order name: Ptt, Activated; Complete Time: 19:35 pm1 08/06 18:51 Order name: Sed Rate; Complete Time: 19:58 pm1 08/06 20:14 Order name: Upper Extremity W/ Cont; Complete Time: 21:46 EDMS 08/06 20:17 Order name: US Extremity Venous Uni Ltd; Complete Time: 21:24 pm1 08/06 18:51 Order name: IV Saline Lock - Large Bore; Complete Time: 19:20 pm1 08/06 18:51 Order name: Labs collected and sent; Complete Time: 19:20 pm1 08/06 18:51 Order name: O2 Per Protocol; Complete Time: 19:01 pm1 08/06 18:51 Order name: O2 Sat Monitoring; Complete Time: 19:01 pm1 08/06 18:51 Order name: Urine Dipstick-Ancillary (obtain specimen); Complete Time: 18:53 pm1 Administered Medications: 19:24 Drug: NS 0.9% 1000 ml Route: IV; Rate: 1000 ml; Site: left antecubital; jd3 20:24 Follow up: Response: No adverse reaction; IV Status: Completed infusion; IV Intake: jd3 1000ml 23:00 Drug: Clindamycin 900 mg Route: IVPB; Infused Over: 30 mins; Site: left antecubital; jd3 23:40 Follow up: Response: No adverse reaction; IV Status: Completed infusion jd3 23:40 Drug: vancoMYCIN 1 grams Route: IVPB; Infused Over: 2 hrs; Site: left antecubital; jd3 23:58 Follow up: Response: No adverse reaction; IV Status: Infusion continued upon admission jd3 Disposition: 08/06/17 22:15 Hospitalization ordered by Francisco Hope for Inpatient Admission. Preliminary diagnosis is Right upper extremity cellulitis and abscess. - Bed requested for Telemetry/MedSurg (Inpatient). - Status is Inpatient Admission. jd3 - Condition is Stable. - Problem is new. - Symptoms have improved. UTI on Admission? No Addendum: 08/08/2017 07:27 Co-signature as Attending Physician, Jim Anne MD. g s Signatures: Dispatcher [facility] ED[facility] Daren Mcdaniel RN RN Sharron Slade RN RN cg Marinas, Patrick, NP HOT KETTLE TENDER pm1 Jim Anne MD MD gs Josue Skinner, RN RN jd3
[2017-08-06] MEDS ORDERED: ACETAMINOPHEN 500 MG TAB PO PRN (22:27)
[2017-08-06] MEDS ORDERED: MAGNESIUM HYDROXIDE 8% 30 ML PO PRN (22:27)
[2017-08-06] MEDS ORDERED: ONDANSETRON 4 MG/2 ML VIAL IV PRN (22:27)
[2017-08-06] MEDS ORDERED: FENTANYL CITR 100 MCG/2 ML IV PRN (22:27)
[2017-08-06] MEDS ORDERED: CLINDAMYCIN 900MG/D5W 900 MG/50 ML BAG IV ONE (23:16)
[2017-08-06] MEDS ORDERED: VANCOMYCIN/NS 1 gm 1 GM/250 ML BAG ONE (23:17)
[2017-08-07 00:32] VITALS: BMI 34.7
[2017-08-07] MEDS: NA CHLORIDE 0.9% 1,000 ML IV SCH ×2 (00:36→09:00)
[2017-08-07] MEDS: CLINDAMYCIN INJ 600 MG in NA CHLORIDE 0.9% 50 ML IV SCH ×2 (01:00→09:20)
[2017-08-07 06:33] LABS: Albumin 2.6 g/dL (3.2-5.5); Bilirubin Total 0.5 mg/dL (0.3-1.2); Potassium 3.7 mEq/L (3.6-5.0); Protein, Total 5.3 g/dL (6.0-8.3)
[2017-08-07 06:42] LABS: Absolute Lymphocytes (CBC) 1.3 K/uL (0.7-4.9); Absolute Monocytes 0.6 K/uL (0.1-1.3); Absolute Neutrophil 5.8 K/uL (1.8-8.0); Basophils % 0.5 % (0-1.3); Eosinophils % 2.3 % (0-4.4); Hematocrit 37.4 % (39.6-49.0); Lymphocytes % 16.7 % (15.3-44.8); MCH 28.8 pg (27.0-35.0); MCV 85.9 fL (80-100); MPV 7.5 fL (7.6-11.3); RBC Red Blood Cell Count 4.35 M/uL (4.33-5.43)
--- NOTE | 2017-08-07 07:04 | P.HP ---
Certification for Inpatient Patient admitted to: Inpatient With expected LOS: >2 Midnights Patient will require the following post-hospital care: None Practitioner: I am a practitioner with admitting privileges, knowledge of patient current condition, hospital course, and medical plan of care. Services: Services provided to patient in accordance with Admission requirements found in Title 42 Section 412.3 of the Code of Federal Regulations Patient History Date of Service: 08/06/17 Reason for admission: Right upper extremity abscess History of Present Illness: Patient is a 51-year-old gentleman who came into the hospital with worsening swelling of his right upper extremity. Patient was admitted a couple days ago was started on IV antibiotics for a cellulitis of his right upper extremity. Patient was given IV antibiotics and clinically he apparently was doing better. CT of the right upper extremity did not reveal an abscess. However, patient' s symptoms worsened so patient came into the emergency room for further evaluation. Patient's right upper extremity seemed more indurated. CT scan was repeated which revealed an abscess of the right upper extremity. Spoke with General surgery and will take patient for incision & debridement in the morning. Allergies No Known Allergies Allergy (Verified 08/04/17 00:41) Home Medications: Smz./Tmp. [Bactrim Ds 800 MG/160 MG*] 1 tab PO BID #28 tab 08/04/17 Lisinopril [Lisinopril] 1 tab PO BEDTIME 08/07/17 Simvastatin [Simvastatin] 1 tab PO BEDTIME 08/07/17 - Past Medical/Surgical History Has patient received pneumonia vaccine in the past: No Diabetic: No -: Hypertension -: Hyperliperdimia -: Tonsillectomy -: Tricep muscle repair - Family History Father Medical History: Heart disease, Diabetes Mother Medical History: Diabetes - Social History Smoking Status: Never smoker Alcohol use: No CD- Drugs: No Caffeine use: Yes Place of Residence: Home Review of Systems 10-point ROS is otherwise unremarkable Physical Examination - Vital Signs Temperature: 98 F Blood Pressure: 131/69 Pulse: 90 Respirations: 79 Pulse Ox (%): 100 - Physical Exam General: Alert, In no apparent distress, Oriented x3 HEENT: Atraumatic, PERRLA, Mucous membr. moist/pink, EOMI, Sclerae nonicteric Neck: Supple, 2+ carotid pulse no bruit, No LAD, Without JVD or thyroid abnormality Respiratory: Clear to auscultation bilaterally, Normal air movement Cardiovascular: Regular rate/rhythm, Normal S1 S2, No murmurs Gastrointestinal: Normal bowel sounds, Soft and benign, Non-distended, No tenderness, No rebound, No guarding Musculoskeletal: Swelling, Erythema, Tenderness, Warmth Integumentary: No rashes, Tenderness/swelling, Erythema, Warmth Neurological: Normal gait, Normal speech, Normal strength at 5/5 x4 extr, Normal tone, Sensation intact, Cranial nerves 3-12 intact, Normal affect Lymphatics: No axilla or inguinal lymphadenopathy - Studies Laboratory Data (last 24 hrs) 08/06/17 19:15: PT 13.2 H, INR 1.12, APTT 23.6 L 08/06/17 19:15: WBC 9.1 D, Hgb 13.1 L, Hct 38.3 L, Plt Count 279 08/06/17 19:15: Sodium 139, Potassium 3.5 L, BUN 6, Creatinine 1.09, Glucose 153 H, Total Bilirubin 0.4, AST 40, ALT 41, Alkaline Phosphatase 56, Lipase 21 L Assessment & Plan - Problems (Diagnosis) (1) Abscess of right upper extremity Current Visit: Yes Status: Acute (2) Hypertension Current Visit: No Status: Acute - Plan Plan: 1. Continue with IV antibiotic 2. Continue with local wound care 3. Surgical consultation 4. Gentle IV hydration 5. Monitor CBC 6. Strict blood sugar monitoring 7. Pain control 8. GI and DVT prophylaxis Discharge Plan: Home Plan to discharge in: Greater than 2 days - Advance Directives Does patient have a Living Will: Yes Does patient have a Durable POA for Healthcare: Yes - Code Status/Comfort Care Code Status Assessed: Yes Code Status: Full Code Critical Care: No Time Spent Managing PTS Care (In Minutes): 50
[2017-08-07] MEDS ORDERED: KCL 20 MEQ/100 mL IVPB 20 MEQ/100 ML BAG IV SCH (08:00)
[2017-08-07] MEDS ORDERED: ENOXAPARIN 40 MG/0.4 ML SQ SCH (09:00)
[2017-08-07] MEDS ORDERED: VANCOMYCIN 1.75 GM in NA CHLORIDE 0.9% 500 ML IVPB SCH (09:00)
[2017-08-07] MEDS ORDERED: Ringers Lactate 1,000 ML IV ONE (09:31)
[2017-08-07] MEDS ORDERED: MIDAZOLAM HCL 2 MG/2 ML INJ ONE (09:46)
[2017-08-07] MEDS ORDERED: LIDOCAINE 1% MPF 5 ML VIAL ONE (09:46)
[2017-08-07] MEDS ORDERED: FENTANYL CITR 100 MCG/2 ML ONE (09:46)
[2017-08-07] MEDS ORDERED: ONDANSETRON 4 MG/2 ML VIAL ONE (09:46)
[2017-08-07] MEDS ORDERED: PROPOFOL 200 MG/20 ML VIAL IV ONE (09:46)
[2017-08-07] MEDS ORDERED: BUPIVACA 0.25%/EPI 0.0005%/PF 30 ML VIAL ONE (09:47)
--- NOTE | 2017-08-07 09:56 | P.OP ---
Preoperative diagnosis: RIGHT Shoulder Abscess Postoperative diagnosis: RIGHT Shoulder Abscess Primary procedure: Incision and Drainage of RIGHT Shoulder Abscess Anesthesia: GETA + Local Estimated blood loss: <2cc Specimen: Cultures sent Findings: ~2cm abscess of right shoulder Complications: None Drain(s): Other (1/2 inch packing) Transferred to: Recovery Room Condition: Good
[2017-08-07 11:48] VITALS: O2SAT 97
[2017-08-07 13:41] VITALS: BP 98/51; TEMP 97.6
--- NOTE | 2017-08-07 14:29 | CON ---
Date of Consultation: 08/06/2017 Brief History Of Present Illness: The patient is a 51-year-old gentleman who came to the hospital wi th cellulitis of his right upper extremity. He noted he was stuck in the shoulder with a pin that wa s stuck on a pegboard up at the right shoulder several days ago. He developed cellulitis from this a nd was placed on antibiotics, admitted for several days ago, started on IV antibiotics for the cellul itis of the right upper extremity. It appeared to be clinically doing better and he had a CT of the right upper extremity, which did not show an abscess at that time. However, after discharge, he cont inued to have worsening of symptoms, increasing cellulitis, worsening pain of the shoulder area and c eder back to the emergency room for further workup. The area seemed to be more indurated, tender, and he had a CT scan performed which confirmed an abscess of this area. Past Medical History: Significant for hypertension and hyperlipidemia. Past Surgical History: Includes a triceps muscle repair due to trauma and a tonsillectomy. Allergies: NO KNOWN DRUG ALLERGIES. Medications: Include Bactrim, lisinopril, and simvastatin. His medical history is positive for heart disease and diabetes in his father and his mother has diabe ana. Social History: He denies smoking, alcohol, or recreational drug use. Review of Systems: A 10-point review of systems other than HPI, denies. Physical Examination: Vital Signs: At the time of my examination, he is a 215 pounds and approximately 5 foot 6. Blood pr essure 128/83, pulse is 100, respiratory rate 17, temperature 97.7. General: He is awake, alert, oriented. Psychiatric: He is appropriate and conversive. HEENT: He is normocephalic. Sclerae anicteric. Mucous membranes are moist. Oropharynx clear. Neck: Supple. No JVD. Chest: Normal expansion and excursion. Cardiovascular: Regular rate and rhythm. Pulmonary: Clear to auscultation bilaterally. Abdomen: Soft and nontender. Extremities: Focused exam of the upper extremity on the right, shows an area of induration, cellulit is of the right shoulder emanating from the shoulder all the way down to the elbow joint proximally. He has some slight decreased range of motion due to tenderness. I palpate a fluctuant area of the r ight shoulder and tenderness in this area. The remainder of the examination essentially just shows c ellulitis extending to the elbow joint and no other acute findings. Laboratory Data: White blood cell count is 9.1, hemoglobin 13.1, hematocrit 38.3, his platelet count is 279. His neutrophils were 83%. His PT 13.1, INR 1.12, PTT is 23.6. His sodium 139, potassium 3 .5, chloride 104, carbon dioxide 27, BUN 6, creatinine 1.09, glucose 153, lactic acid is 12.9. C-re active protein 105.8, lipase is 21. He had imaging performed which include an upper extremity venous study on 08/06, which was officially read as no evidence of right upper extremity DVT. He norman figueroa had an upper extremity CT scan performed, which was officially read as progression of the inflamm atory changes involving the subcutaneous fat of the right upper extremity. There is development of s ubcutaneous abscess in the posterior soft tissue of the distal right arm just proximally elbow measur ing 18 x 12 mm. Assessment And Plan: This is a 51-year-old male who presents with signs and symptoms of an abscess a nd cellulitis due to an inoculation stab from a pin several days ago almost 1 week ago. 1.IV fluid hydration. 2.Antibiotic coverage for gram-positive organisms. 3.I explained the risks, benefits, and alternatives of an incision and drainage of the collection an d ultrasound of the remainder of the arm to see if there is improvement or worsening of abscess in th e remainder of the arm. However, ultrasound revealed no additional collections during the time of my examination. Therefore, he will be taken for an incision and drainage of the right shoulder abscess in the a.m. The patient agreed to proceed with the above stated plan. Thank you for this interesting consult. KRISTI/ERNESTINE Voice ID: [id number] Report ID: [id number]
--- NOTE | 2017-08-07 20:41 | OP ---
Date of Procedure: 08/07/2017 Surgeon: Vincent Holcomb MD, Preoperative Diagnosis: Right shoulder abscess. Postoperative Diagnosis: Right shoulder abscess. Procedure Performed: Incision and drainage of right shoulder abscess. Anesthesia: General endotracheal plus local with 0.25% Marcaine with epinephrine. Estimated Blood Loss: 2 cc. Specimen: Culture sent. Findings: Approximately 2 cm abscess of the right shoulder. Complications: None. Drains: Half-inch iodoform packing placed. Disposition: Transferred recovery room in good condition. Procedure In Detail: After informed consent was obtained, the patient was brought to the operating r oom, prepped and draped in the usual sterile fashion. After adequate anesthesia was achieved, the ar m was ultrasound to ensure there were no additional collections in the area all the way down the elbo w joint. None were appreciated other than the 1 right at the shoulder on the prominence of the delto id area. I then made a skin incision. After appropriately anesthetizing 0.25% Marcaine with epineph rine, approximately 2 cm in size, I dissected down bluntly and encountered an approximately 2 cm absc ess cavity, which I digitized at this time. I sent cultures for both aerobic and anaerobic speciatio n at this time. I irrigated out the area copiously and achieved hemostasis with electrocautery. Aft er this performed, I inspected the cavity and digitized 1 last time to ensure there were no other loc ulations. No loculations were present. The area was copiously irrigated one last time and packed wi th half-inch iodoform packing. The patient tolerated the procedure well without complication, transf erred to the PACU in good condition. All counts were correct at the end of the case. KRISTI/ERNESTINE Voice ID: [id number] Report ID: [id number]
[2017-08-07] MEDS ORDERED: LISINOPRIL 10 MG TAB PO SCH (21:00)
[2017-08-07] MEDS ORDERED: ATORVASTATIN 10 MG TAB PO SCH (21:00)
[2017-08-07] MEDS ORDERED: HOME MED 1 EA UNK (Simvastatin [Simvastatin] 1 TAB) PO SCH (21:00)
--- NOTE | 2017-08-07 22:41 | DS ---
Date of Discharge: 08/07/2017 Consultants: Vincent Holcomb MD Procedure: On 08/07/2017, I and D of right shoulder abscess. Admitting Diagnoses: 1.Right shoulder abscess. 2.Hypertension, essential. 3.Obesity, body mass index 34. 4.Hyperlipidemia. Discharge Diagnoses: 1.Right shoulder abscess, status post incision and drainage. 2.Essential hypertension, stable. 3.Mixed hyperlipidemia. Hospital Course: The patient is a 51-year-old male, who was readmitted to the hospital for right upp er extremity abscess. The patient was recently discharged on p.o. antibiotics for cellulitis of the right upper extremity. The patient was seen by General surgery, Dr. Holcomb, who performed the above -named procedure. The patient tolerated I and D well and also had Doppler of his right upper extremi ty, which did not show any DVT. Upper extremity CT scan was also done, which showed progression of i nflammatory changes involving the skin and subcutaneous fat of the right upper extremity, development of subcutaneous abscess of the posterior soft tissues of the distal right arm just proximal to the e lbow measuring 18 x 12 mm. The patient tolerated the procedure well. He was stable for discharge an d cleared by surgical standpoint. The patient was then discharged home in a stable condition. Activity: No driving or operating heavy machinery while on narcotic. Followup: Follow up with PCP in 2-3 a day. Follow up with surgeon, Dr. Holcomb, in 1 week. Return to ER for worsening condition. Diet: Heart healthy. Wound Care: Instructions provided for the patient. Discharge Medications: As per medication reconciliation list. Discharge Physical Examination: General: Awake, alert, oriented, in no acute distress. CV: S1, S2. No murmurs. Respiratory: Moving air well bilaterally. No wheezing. Abdomen: Soft, nontender, nondistended. Positive bowel sounds. Extremities: No clubbing, cyanosis, or edema. Skin: Right shoulder incision site clean, dry, and intact. Neurologic: Nonfocal. Total time spent discharging the patient was 38 minutes. /ERNESTINE Voice ID: [id number] Report ID: [id number]
== END 2017-08-07 14:46 | disposition home or self-care (01) | DRG 581 ==
LOC: ER 18:20 → ERHOLD 22:15 → 4TH 22:51
PROVIDERS: ADMIT Hospitalist; ATTEND Family Medicine
PROC: 0J9D0ZZ Drainage of Right Upper Arm Subcutaneous Tissue and Fascia, Open Approach (ICD-10-PCS; principal; 2017-08-07 09:30)
DX: L02.413 Cutaneous abscess of right upper limb (principal); L03.113 Cellulitis of right upper limb; I10 Essential (primary) hypertension; E78.2 Mixed hyperlipidemia; E66.9 Obesity, unspecified; Z68.34 Body mass index [BMI] 34.0-34.9, adult
CPT/HCPCS: 36415; 73201; 80048; 80053; 80076; 82550; 83605; 83690; 84145; 85025; 85610; 85652; 85730; 86140; 87040; 87070; 87075; 87077; 87186; 87205; 93971; 96361; 96365; 96367; 99285; J2250; J2405; J3010; J3370; J7030; Q9967

== ENCOUNTER 2017-09-09 07:20 | Day surgery (SDC) | payer OTHER ==
--- OUTSIDE RECORDS SUMMARY | 2017-09-09 07:22 | XMS REPORT ---
[...] End Status Dosage System Date Date Cefdinir [facility] 24792946505 300 MG Oral Active TK 2 CS PO QD Virtussin A/C [facility] 35255583117 100-10 MG/5ML Active (Schedule V Oral Drug) TK 1 TO 2 TEASPOONS PO QHS PRN Aspirin Adult [facility] 84020343689 81 MG Orally Active 1 tablet Low Dose Once a day Lisinopril [facility] 83622254183 10 MG Oral Once Active 1 tablet a day Azithromycin ND 69306895717 250 MG Oral Active not defined Oseltamivir [facility] 65967941610 75 MG Oral Active TK ONE C PO Phosphate BID TAT Simvastatin [facility] 55618677578 20 MG Oral Once Active 1 tablet in a day the evening Fish Oil ND 50349862075 500 MG Orally Active 1 capsule Twice a day Results No Known Results Summary Purpose eClinicalWorks Submission
--- OUTSIDE RECORDS SUMMARY | 2017-09-09 07:22 | XMS REPORT ---
:1965 Author Organization eClinicalWorks Care Team Providers Name Role Phone Leora Vizcarra Provider Role Unavailable Allergies No Known Allergies Problems Problem Type Condition Code Onset Dates Condition Status Problem Hypertension I10 Active Problem Pure hypercholesterolemia E78.00 Active Medications No Known Medications Results No Known Results Summary Purpose eClinicalWorks Submission
--- OUTSIDE RECORDS SUMMARY | 2017-09-09 07:22 | XMS REPORT ---
:1965 Author Organization [employer] Care Team Providers Name Role Phone Vincent Holcomb Provider Role Unavailable Allergies, Adverse Reactions, Alerts Substance Reaction Event Type N.K.D.A. Info Not Available Non Drug Allergy Problems Problem Type Condition Code Onset Dates Condition Status Problem Hypertension I10 Active Assessment Postop check Z09 Active Problem Pure hypercholesterolemia E78.00 Active Assessment Encounter for screening colonoscopy Z12.11 Active Medications Medication Code Code Instructions Start End Status Dosage System Date Date Simvastatin [facility] 92824104853 20 MG Oral Once Active 1 tablet a day in the evening Aspirin Adult [facility] 33378644870 81 MG Orally Active 1 tablet Low Dose Once a day Fish Oil [facility] 37666382743 500 MG Orally Active 1 capsule Twice a day Lisinopril [facility] 36300802947 10 MG Oral Once Active 1 tablet a day Results No Known Results Summary Purpose eClinicalWorks Submission
[2017-09-09] MEDS ORDERED: PROPOFOL 200 MG/20 ML VIAL IV ONE (08:20)
[2017-09-09] MEDS ORDERED: LIDOCAINE 1% MPF 5 ML VIAL ONE (08:20)
--- NOTE | 2017-09-09 08:49 | ENDO RPT ---
[address], [address] COLONOSCOPY PROCEDURE REPORT EXAM DATE: 09/09/2017 PATIENT NAME: Mian Barreto MR #: [id number] BIRTHDATE: 1965 ATTENDING: Vincent Holcomb DR STATUS: outpatient CARTRIDGE FEEDER: Kristy Lutz RN and Louis Babin INDICATIONS: The patient is a 51 yr old Male here for a colonoscopy due to colon cancer screening PROCEDURE PERFORMED: Colonoscopy with biopsy - cold polypectomy MEDICATIONS: Per Anesthesia. ESTIMATED BLOOD LOSS: None CONSENT: The patient understands the risks and benefits of the procedure and understands that these risks include, but are not limited to: sedation, allergic reaction, infection, perforation and/or bleeding. Alternative means of evaluation and treatment include, among others: physical exam, x-rays, and/or surgical intervention. The patient elects to proceed with this endoscopic procedure. DESCRIPTION OF PROCEDURE: During intra-op preparation period all mechanical medical equipment was checked for proper function. Hand hygiene and appropriate measures for infection prevention was taken. Procedure, possible complications, alternatives including, but not limited to possibility of bleeding, perforation, tear, infection, sepsis, need for surgery, need for blood transfusion, were explained to the patient. After the risks, benefits and alternatives of the procedure were thoroughly explained, Informed consent was verified, confirmed and timeout was successfully executed by the treatment team. The patient was placed in the left lateral position. A digital rectal exam was performed and revealed internal hemorrhoids. After appropriate level of anesthesia, the scope was passed. The [id number] ([id number]) endoscope was introduced through the anus and advanced to the cecum, which was identified by both the appendix and ileocecal valve. The quality of the prep was fair. The instrument was then slowly withdrawn as the colon was fully examined. Scope withdrawal time was 10 minutes. COLON FINDINGS: A small smooth sessile polyp with a friable surface was found in the proximal transverse colon. A polypectomy was performed with cold forceps. The resection was complete, the polyp tissue was completely retrieved and sent to histology. Small internal hemorrhoids were found. The colon mucosa was otherwise normal. Retroflexed views revealed no abnormalities. The scope was then completely withdrawn from the patient and the procedure terminated. ADVERSE EVENTS: There were no complications. IMPRESSIONS: Small sessile polyp was found in the proximal transverse colon; polypectomy was performed in a piecemeal fashion with cold forceps RECOMMENDATIONS: 1. avoid NSAIDS for 2 weeks 2. await biopsy results 3. fiber rich diet 4. follow-up: office 2 week(s) RECALL: Return in 5 year(s) for Colonoscopy, pending biopsy results. Vincent Holcomb DR eSigned: Vincent Holcomb DR 09/09/2017 8:48 AM cc: CPT CODES: ICD9 CODES: PATIENT NAME: Mian BarretoChristina MR#: [id number]
[2017-09-09 10:44] VITALS: BP 102/63; TEMP 97.2; O2SAT 100
== END 2017-09-09 09:27 | disposition home or self-care (01) ==
LOC: ENDO 07:20
PROVIDERS: ATTEND Surgery
PROC: 0DBL8ZX Excision of Transverse Colon, Via Natural or Artificial Opening Endoscopic, Diagnostic (ICD-10-PCS; principal; 2017-09-09 08:30)
DX: Z12.11 Encounter for screening for malignant neoplasm of colon (principal); K63.5 Polyp of colon; K64.8 Other hemorrhoids; I10 Essential (primary) hypertension; E78.00 Pure hypercholesterolemia, unspecified; E78.5 Hyperlipidemia, unspecified; F17.210 Nicotine dependence, cigarettes, uncomplicated; Z83.3 Family history of diabetes mellitus; Z82.49 Family history of ischemic heart disease and other diseases of the circulatory system
CPT/HCPCS: 88305

== ENCOUNTER 2023-10-21 09:22 | Day surgery (SDC) | payer OTHER ==
[2023-10-19 16:28] LABS: Absolute Eosinophils 0.2 K/uL (0-0.5); Absolute Monocytes 0.6 K/uL (0.1-1.3); Absolute Neutrophil 4.2 K/uL (1.8-8.0); Basophils % 0.3 % (0-1.3); Eosinophils % 3.3 % (0-4.4); Hematocrit 43.2 % (39.6-49.0); Hemoglobin 14.3 g/dL (13.6-17.9); Lymphocytes % 17.1 % (15.3-44.8); MCH 29.1 pg (27.0-35.0); MCV 88.4 fL (80-100); MPV 7.5 fL (7.6-11.3); Monocytes % 10.3 % (3.3-12.3); Platelets 248 thou/uL (152-406); RBC Red Blood Cell Count 4.89 M/uL (4.33-5.43)
[2023-10-21] MEDS: Ringers Lactate 1,000 ML IV ONE (09:40)
[2023-10-21] MEDS ORDERED: propofoL 200 MG/20 ML VIAL IV ONE ×2 (11:06)
[2023-10-21] MEDS ORDERED: LIDOCAINE 1% MPF 5 ML VIAL ONE (11:06)
[2023-10-21 12:33] VITALS: TEMP 97
[2023-10-21 12:51] VITALS: BP 109/75; O2SAT 96
--- NOTE | 2023-10-24 15:11 | EKG ---
Test Date: 2023-10-19 Test Time: 15:58:42 Bone Crusher: CD MEASUREMENT RESULTS: Intervals: Rate: 77 MS: 132 QRSD: 88 QT: 364 QTc: 411 [place]: P: 38 MS: 132 QRS: 57 T: 43 INTERPRETIVE STATEMENTS: Normal sinus rhythm Normal ECG Compared to ECG 08/03/2017 21:53:51 Sinus tachycardia no longer present Electronically Signed On 10-24-23 14:57:02 CDT by Rigo Howard
== END 2023-10-21 12:46 | disposition home or self-care (01) ==
LOC: OR 09:22
PROVIDERS: ATTEND Surgery
PROC: 0DBL8ZX Excision of Transverse Colon, Via Natural or Artificial Opening Endoscopic, Diagnostic (ICD-10-PCS; 2023-10-21)
PROC: 0DBN8ZX Excision of Sigmoid Colon, Via Natural or Artificial Opening Endoscopic, Diagnostic (ICD-10-PCS; 2023-10-21)
PROC: 0DBF8ZX Excision of Right Large Intestine, Via Natural or Artificial Opening Endoscopic, Diagnostic (ICD-10-PCS; principal; 2023-10-21 10:45)
DX: Z12.11 Encounter for screening for malignant neoplasm of colon (principal); D12.5 Benign neoplasm of sigmoid colon; D12.2 Benign neoplasm of ascending colon; D12.3 Benign neoplasm of transverse colon; K64.8 Other hemorrhoids
CPT/HCPCS: 93005; 85025; 80048; 36415; 88305; 45385; J2704; J2001; J7120